=== PATIENT | female | born 1985 | race Caucasian/White ===

== ENCOUNTER 2020-08-08 12:15 | Outpatient (CLI) | payer OTHER, SELFPAY ==
[2020-08-08 12:50] LABS: Hematocrit 43.2 % (37.0-47.0); Hemoglobin 15.4 g/dL (12.0-15.0); Mean Corpuscular HGB Conc 35.6 g/dl (32-36); Mean Corpuscular Hemoglobin 31.8 pg (26-34); Mean Corpuscular Volume 89.1 fl (80-100); Mean Platelet Volume 10.4 fl (7.4-10.4); Platelet Count Result 228 k/mm3 (150-375); Red Blood Count 4.85 M/mm3 (4.2-5.4); Red Cell Distribution Width 11.5 % (11.5-14.5); White Blood Count 7.2 K/mm3 (4.5-10.0)
[2020-08-08 13:58] LABS: Vitamin D 25 Hydroxy 44.8 ng/mL
== END 2020-08-08 12:16 | disposition home or self-care (01) ==
LOC: ANHLAB 12:16
PROVIDERS: Visit Provider Nurse Practitioner
DX: E55.9 Vitamin D deficiency, unspecified (principal)
CPT/HCPCS: 36415; 82306; 82607; 85027

== ENCOUNTER 2023-01-06 09:23 | Outpatient (CLI) | payer OTHER, SELFPAY ==
[2023-01-06 10:05] LABS: Hemoglobin A1C 4.9 % (<5.7)
[2023-01-06 10:27] LABS: Free T4 Free Thyroxine 0.95 ng/mL (0.78-2.19)
[2023-01-06 10:33] LABS: Thyroid Stimulating Hormone 0.707 uIU/mL (0.465-4.680)
[2023-01-09 04:11] LABS: Prolactin 10.3 ng/mL (***)
[2023-01-09 15:37] LABS: DHEA-Sulfate 338 mcg/dL (23-266); Insulin Level Total 2.9 uIU/mL (<=19.6)
[2023-01-10 12:52] LABS: Testosterone Total 29 ng/dL (2-45)
== END 2023-01-06 09:24 | disposition home or self-care (01) ==
PROVIDERS: Visit Provider Nurse Practitioner
DX: L68.0 Hirsutism (principal)
CPT/HCPCS: 36415; 82627; 83036; 83498; 83525; 84146; 84403; 84439; 84443

== ENCOUNTER 2023-11-25 09:25 | Emergency (ER) | payer OTHER, MEDICAID, SELFPAY ==
[2023-11-25 09:43] VITALS: BP 142/87; PULSE 76; RESP 16; TEMP 37.1; O2SAT 99
--- NOTE | 2023-11-25 10:17 | ED.GENADULT ---
HPI - General Adult General Chief complaint: Eye Problems Stated complaint: left eye red,swollen Source: patient Mode of arrival: ambulatory Limitations: no limitations History of Present Illness HPI narrative: Patient presents for evaluation of bilateral eye irritation. Yesterday she noticed some redness and itching to the left eye. She then developed the mucopurulent discharge from left eye. She woke from sleep this morning with her right eye feeling irritated and also with thick yellow/green drainage. She reports some blurred vision secondary to the discharge. She denies any ocular pain. No recent sick contacts to her knowledge. She now has sinus congestion, sore throat, ear pressure and a mild cough. No fever, chills, nausea, vomiting, diarrhea. Related Data Home Medications Medication Instructions Recorded Confirmed albuterol sulfate 90 mcg/actuation 90 mcg inhalation DIRECTED 11/25/23 11/25/23 aerosol inhaler Allergies Allergy/AdvReac Type Severity Reaction Status Date / Time No Known Allergies Allergy Verified 09/22/19 09:37 Review of Systems Review of Systems: CONSTITUTIONAL: Denies fever, chills, or sweats. EYES: reports bilateral eye redness and itching with thick yellow/green discharge. Reports blurred vision. Denies ocular pain ENT: reports sinus congestion, sore throat, bilateral ear pressure. CARDIOVASCULAR: Denies chest pain, palpitations, or edema. RESPIRATORY: Reports cough. Denies shortness of breath GASTROINTESTINAL: Denies abdominal pain, nausea, vomiting, or diarrhea. GENITOURINARY: Denies dysuria or hematuria. SKIN: Denies rash or itching. MUSCULOSKELETAL: Denies back pain, joint pain, or myalgia. NEUROLOGIC: Denies headache, numbness, dizziness, or weakness. PSYCHIATRIC: Denies anxiety or depression. [facility] Past Medical History Medical History No pertinent past medical history Surgical History Surgical History No significant past surgical history Family History Family History Mother Family history non-contributory Social History Social History Smoking status: Never smoker Substance use: never Living arrangements: with family Gender identity (if verbalized by the patient): Female Sexual Orientation (if Verbalized by the Patient): Straight or Heterosexual Spiritual care concerns: No Exam Narrative: GENERAL: Well-appearing, well-nourished, and in no acute distress. HEAD: Normocephalic, atraumatic. EYES: PERRLA and EOMI. bilateral conjunctival injection with mucopurulent discharge present in both eyes ENT: Nares clear, no rhinorrhea or epistaxis. Mucous membranes moist. bilateral tympanic membrane erythema. Posterior pharyngeal erythema without exudate. Uvula is midline NECK: Supple. No adenopathy or masses. No carotid bruits or JVD CHEST: Clear to auscultation. No respiratory distress. No wheezes rales or rhonchi HEART: Regular rate and rhythm. No murmur heard. Normal peripheral pulses. ABDOMEN: Soft, nontender, nondistended, normal active bowel sounds. EXTREMITIES: Normal range of motion. No edema. SKIN: Warm, dry, no rash. NEURO: No focal deficits. Alert and oriented x3. PSYCH: Normal mood and affect. Course Course Emergency Course: this is a 38-year-old female who presented for evaluation eye irritation and sick symptoms. She has evidence of conjunctivitis today. Will treat with erythromycin. COVID, flu, strep were all negative but through shared decision making opted to proceed with antibiotic therapy for pharyngitis. Will discharge with Augmentin. Increase hydration. Advised on hand hygiene measures. Follow up primary provider. Go to the ER for worsening symptoms. Patient in agreement w
== END 2023-11-25 11:04 | disposition home or self-care (01) ==
PROVIDERS: Emergency Provider Nurse Practitioner; PCP Family Medicine
DX: J02.9 Acute pharyngitis, unspecified (principal); H10.9 Unspecified conjunctivitis; Z20.822 Contact with and (suspected) exposure to COVID-19
CPT/HCPCS: 87081; 87426; 87804; 87880; 99213; G0463

== ENCOUNTER 2024-02-25 15:13 | Outpatient (CLI) | payer OTHER, MEDICAID, SELFPAY ==
--- NOTE | ~2024-02-25 | US_ITS ---
US pelvic complete Ordering provider: Saadia Cerda, History: . Abnormal uterine bleeding,pelvic pain . Comparison: None. Technique: Transabdominal ultrasound of the pelvis (Doppler ultrasound interrogation techniques used as needed for this exam.) FINDINGS: CERVIX: Normal. UTERUS: Measures 7.7x 4.1, 5.5 cm in length which is within normal limits and is anteverted. No myom etrial masses. ENDOMETRIUM: Normal in thickness measuring 7 mm. . No endometrial masses, cysts or fluid. IUD is seen in the endometrial cavity. CUL DE SAC: No free fluid. RIGHT OVARY: Normal in size measuring 3.4x 1.7x 2.5 cm. Normal echotexture. Doppler vascular flow pre sent. LEFT OVARY: Normal in size measuring 3.2x 1.5x 2.6 cm. Normal echotexture. Doppler vascular flow pres ent. ADNEXA: Normal. No mass. IMPRESSION: normal pelvic ultrasound. Reviewed, dictated and finalized at location A. IMPRESSION: normal pelvic ultrasound.
== END 2024-02-25 15:14 ==
LOC: MICIMG 15:13
PROVIDERS: PCP Nurse Practitioner; Visit Provider Nurse Practitioner
DX: N93.8 Other specified abnormal uterine and vaginal bleeding (principal); R10.2 Pelvic and perineal pain
CPT/HCPCS: 76856

== ENCOUNTER 2024-05-05 13:34 | Outpatient (CLI) | payer OTHER, MEDICAID, SELFPAY ==
--- NOTE | ~2024-05-05 | US_ITS ---
EXAMINATION: US pelvic complete DATE: 05/05/2024 13:50 INDICATION: Lost intrauterine device strings. TECHNIQUE: Multiple transabdominal sonographic images of the pelvis were obtained. COMPARISON: Ultrasound 02/25/2024 FINDINGS: The uterus measures 9.5 x 3.6 x 4.8 cm. There is no free fluid in the pelvis. The endometrial complex measures 3 mm in thickness. There is an intrauterine device in expected position. The right ovary me asures 3.1 x 1.8 x 3.0 cm. The left ovary measures 2.7 x 1.9 x 1.9 cm. There is normal vascular flow in the ovaries. IMPRESSION: 1. Intrauterine device in expected position. Reviewed, dictated and finalized at location A.
== END 2024-05-05 13:35 | disposition home or self-care (01) ==
LOC: MICIMG 13:34
PROVIDERS: PCP Nurse Practitioner Women's Health; Visit Provider Nurse Practitioner Women's Health
DX: T83.32XA Displacement of intrauterine contraceptive device, initial encounter (principal)
CPT/HCPCS: 76856

== ENCOUNTER 2025-07-25 11:37 | Emergency (ER) | payer OTHER, MEDICAID, SELFPAY ==
[2025-07-25] VITALS (13 sets, daily range): BP systolic 120–152; BP diastolic 76–88; PULSE 68–94; RESP 10–23; TEMP 36.4; O2SAT 93–100
--- NOTE | ~2025-07-25 | XR_ITS ---
EXAMINATION: XR chest 2V, 07/25/2025 12:14 HOSPICE SPIRITUAL CARE COORDINATOR HISTORY: dizzy, CHEST PAIN, X 1 DAY COMPARISON: No comparisons available. Technique: 2 views obtained. Findings: The lungs are clear, no effusion. No pneumothorax. Heart is normal size. Mediastinal and hilar contours are within normal limits. Bony thorax no acute abnormality. Impression: No acute cardiopulmonary abnormality. Reviewed, dictated and finalized at location P. ICE SPIRITUAL CARE COORDINATOR Impression: No acute cardiopulmonary abnormality.
--- NOTE | 2025-07-25 11:47 | ECG_ITS ---
Test Date: 2025-07-25 11:50:12 Measurements Intervals [place] Rate: 89 P: 36 MD: 153 QRS: -7 QRSD: 94 T: -11 QT: 356 QTc: 433 Interpretive Statements SINUS RHYTHM POSSIBLE LEFT ATRIAL ENLARGEMENT [-0.1mV P WAVE IN V1/V2] LOW QRS VOLTAGE IN PRECORDIAL LEADS [QRS DEFLECTION < 1.0 mV IN CHEST LEADS] INFERIOR MYOCARDIAL INFARCTION [40+ ms Q WAVE AND/OR ST/T ABNORMALITY IN II/aVF], OF INDETERMINATE AGE NONSPECIFIC ST AND T-WAVE ABNORMALITY ABNORMAL ECG No previous ECG available for comparison Electronically Signed On 07-25-2025 13:57:21 [employer]IGHER [employer]ULKER by Carlos Izquierdo M.D.
[2025-07-25 12:03] LABS: Hematocrit 44.0 % (37.0-47.0); Hemoglobin 15.3 g/dL (12.0-15.0); Immature Granulocyte Percent A 0.4 % (0-0.5); Lymphocytes Absolute Auto 1.68 K/mm3 (0.9-3.2); Mean Corpuscular HGB Conc 34.8 g/dl (32-36); Mean Corpuscular Hemoglobin 30.7 pg (26-34); Mean Corpuscular Volume 88.2 fl (80-100); Nucleated Red Blood Cells Absolute Auto 0.000 K/mm3 (0.0-0.012); Nucleated Red Blood Cells Perc 0.0 % (0.0-0.2); Platelet Count Result 276 k/mm3 (150-375); Red Blood Count 4.99 M/mm3 (4.2-5.4); White Blood Count 5.2 K/mm3 (4.5-10.0)
[2025-07-25 12:23] LABS: Alanine Aminotransferase 27 U/L (6-35); Albumin Level 4.5 g/dL (3.5-5.1); Alkaline Phosphatase 78 U/L (38-126); Anion Gap 9 mmol/L (4-12); Aspartate Amino Transferase 26 U/L (14-36); Bilirubin,Total 0.5 mg/dL (0.2-1.3); Blood Urea Nitrogen 8 mg/dL (7-17); Calcium 9.0 mg/dL (8.4-10.2); Carbon Dioxide 25 mmol/L (22-30); Chloride 103 mmol/L (98-107); Estimated CRCL calculation 121 ml/min; Estimated Glomerular Filt Rate > 60; Glucose 152 mg/dL (65-110); Potassium 3.7 mmol/L (3.4-5.0); Sodium 137 mmol/L (137-145); Total Protein 7.3 g/dL (6.3-8.2)
[2025-07-25] MEDS: ONDANSETRON INJ 4 MG/2 ML VIAL IV PUSH (12:33)
[2025-07-25] MEDS: MECLIZINE HCL 25 MG TABLET PO (12:54)
[2025-07-25] MEDS: KETOROLAC 30 MG/ML VIAL (*BKC) IV PUSH (12:54)
[2025-07-25] MEDS: SODIUM CHLORIDE 0.9% IV 1,000 ML 999 ML IV CONT (12:56)
--- OUTSIDE RECORDS SUMMARY | 2025-07-25 13:45 | XMS_ITS | Clinical Summary ---
Author Organization [facility] Address [address] [place] [address] Care Team Providers Care Auto Air Conditioning Installer Name Role Phone Unavailable Primary Care Provider Unavailabl e Source Comments [facility],non-owned Affiliates and Associated Physician Practices is amultiple site organization consisting of ambulatory clinics and hospital sitesin [place], [place], [place] and [place]. This disclosure is being madepursuant to the Care Everywhere program and may not contain all information available regarding this patient. Last updated 18.[employer] [facility] [employer] Allergies No known active allergies Medications * Be aware that medications may not be up to date on this document. Alwaysverify current medications with the patient. albuterol HFA (PROVENTIL;ALAYNA MARC;PROAIR) 108 (90 BASE) MCG/ACT inhaler Every 4-6 hours PRN Active Active Problems Problem Noted Date Diagnosed Date Uncomplicated asthma 01/01/2017 Gastro-esophageal reflux disease without esophag itis 01/01/2017 Other specified disorders of bladder 01/01/2017 Resolved Problems Problem Noted Date Diagnosed Date Resolved Date Constipation 01/01/2017 01/29/2017 Overview (01/01/2017): Overview: Occasional Family History Medical History Relation Name Comments Diabetes Father Hypercholesterolemia Father Hypertension Father Cancer - Breast Mother Diabetes Mother Heart Disease Mother Relation Name Status Comments Father Mother Social History Tobacco Use Types Packs/Day Years Used Date Smoking Tobacco: Never Smokeless Tobacco: Never Comments No Sex and Gender Information Value Date Recorded Sex Assigned at Not on file Legal Sex Female 8:53 AM CDT Gender Identity Not on file Sexual Orientation Not on file Last Filed Vital Signs Vital Sign Reading Time Taken Comments Blood Pressure 116/78 10/27/2019 4:51 PM ARCHITECTURE TECHNICIAN Pulse 71 10/27/2019 4:51 PM ARCHITECTURE TECHNICIAN Temperature 36.9 C (98.5 F) 10/27/2019 4:51 PM ARCHITECTURE TECHNICIAN Respiratory Rate 16 10/27/2019 4:51 PM ARCHITECTURE TECHNICIAN Oxygen Saturation 98% 10/27/2019 4:51 PM ARCHITECTURE TECHNICIAN Inhaled Oxygen Concentration - - Weight 90.7 kg (200 lb) 10/27/2019 4:51 PM ARCHITECTURE TECHNICIAN Height 175.3 cm (5' 9) 10/27/2019 4:51 PM ARCHITECTURE TECHNICIAN Body Mass Index 29.53 10/27/2019 4:51 PM ARCHITECTURE TECHNICIAN Plan of Treatment Health Maintenance Due Date Last Done Comments LIPID TESTING 1984 MAMMOGRAM 1984 HIV SCREENING 1999 HEPATITIS C SCREENING 08/29/2002 DTAP/TDAP/TD VACCINES (1 - Tdap) 2003 HEPATITIS B VACCINE (1 of 3 - 19+ 3-dose series) 2003 PAP SMEAR 2005 HPV VACCINE (1 - 3-dose SCDM series) 2011 Cervical Cancer Screening 2014 PAP with HPV 2014 DEPRESSION SCREENING 09/01/2024 COVID-19 VACCINE (1 - 2024-2 6 season) 2025 INFLUENZA VACCINE (#1) 2025 ZOSTER VACCINE (1 of 2) 2034 HIB VACCINE Aged Out No longer eligi ble based on patient's age to complete this topic MENINGOCOCCAL (Group B) VACC INE SHARED DECISION-MAKING Aged Out No longer eligibl e based on patient's age to complete this topic MENINGOCOCCAL GROUPS A/C/Y/W VACCINE Aged Out No longer eligible b ased on patient's age to complete this topic PNEUMOCOCCAL VACCINE Aged Out No long er eligible based on patient's age to complete this topic Insurance [facility]
--- OUTSIDE RECORDS SUMMARY | 2025-07-25 13:45 | XMS_ITS | Clinical Summary ---
Author Organization [facility] Address [address] [place] [id number] Care Team Providers Care Camp Attendant Name Role Phone Juwan Guidry MD Primary Care Provider + Allergies No known active allergies Medications magnesium oxide 400 mg magnesium capsule Take by mouth daily Active fluticasone propion-salmetero L (ADVAIR DISKUS) 500-50 mcg/dose diskus inhalerIndication s:Maintenance Therapy for Asthma Inhale 1 puff 2 (two) times a day Rinse mouth with water after use. Do not swallow. 3 each 4 4 Active montelukast (SINGULAIR) 10 mg tabletIndications :Moderate persistent asthma without complication Take 1 tablet (10 mg total) by mouth nightly 90 tablet 3 4 Active tiotropium bromide (Spiriva Respimat) 2.5 mcg/actuation inhalerIndication s:Moderate persistent asthma without complication Inhale 2 puffs daily 12 g 3 4 08/06/20 25 Active albuterol HFA (ProAir HFA) 90 mcg/actuation inhalerIndication s:Moderate persistent asthma without complication Inhale 2 puffs every 4 (four) hours as needed for wheezing or shortness of breath 2 each 2 4 08/06/20 25 Active meloxicam (MOBIC) 15 mg tabletIndications :Chronic pain of left knee Take 1 tablet (15 mg total) by mouth daily 30 tablet 3 5 Active buPROPion XL (WELLBUTRIN XL) 150 mg 24 hr tabletIndications :MICHELLE (generalized anxiety disorder) Take 1 tablet (150 mg total) by mouth every morning 90 tablet 1 5 Active SUMAtriptan (IMITREX) 50 mg tabletIndications :Migraine Take 1 tablet (50 mg total) by mouth once as needed for migraine May repeat after 2 hours. 27 tablet 4 5 02/19/20 26 Active Active Problems Problem Noted Date Diagnosed Date Chronic pain of left knee 08/06/2024 Assessment & Plan (08/06/2024 11:45 AM DIE MAKER BENCH STAMPING): - concern for meniscal tear given hx and exam consistent with meniscal tear - will get xray, MRI and ref to PT - ref to ortho for eval Annual physical exam 08/06/2024 Assessment & Plan (08/06/2024 11:46 AM DIE MAKER BENCH STAMPING): - Reviewed with the patient BMI, blood pressure, diet, exercise, and encouraged healthy lifestyle choices. - Screened for high risk behaviors, diet and exercise habits, and symptoms of depression. - check screening labs - encouraged regular exercise, healthy lifestyle, obtain/maintain healthy weight Neck pain 04/23/2022 Assessment & Plan (04/23/2022 12:20 PM CDT): - uncontrolled - ref to PT and get xray/MRI of neck Moderate persistent asthma without complication 10/12/2021 Assessment & Plan (08/06/2024 11:42 AM DIE MAKER BENCH STAMPING): - poor control due to being off meds - restart advair, singulair, spiriva, albuterol - f/u with pulm Assessment & Plan (12/14/2021 11:35 AM CDT): - stable - continue current medication - discussed need to take advair bid Assessment & Plan (11/14/2021 12:04 PM CDT): - uncontrolled - pt given trial of spiriva respimat 2.5mcg inhaler to use two inhalations daily - prednisone burst for current exacerbation - f/u in 1 mo Assessment & Plan (10/12/2021 3:50 PM DIE MAKER BENCH STAMPING): - uncontrolled - start advair and albuterol prn - f/u in 1 mo MICHELLE (generalized anxiety disorder) 10/12/2021 Assessment & Plan (08/06/2024 11:44 AM DIE MAKER BENCH STAMPING): - stable - continue wellbutrion Assessment & Plan (10/07/2022 2:51 PM DIE MAKER BENCH STAMPING): - stable - continue current medication Assessment & Plan (03/15/2022 10:29 AM CDT): - stable but gaining weight - will try adding wellbutrin - f/u in 1 mo Assessment & Plan (12/14/2021 11:35 AM CDT): - stable with still mild sx - continue current medication - if neg cardiac work up will try increasing prozac to 40mg daily to see if treating for panic attacks will help sx control. Assessment & Plan (11/14/2021 12:05 PM CDT): - uncontrolled - start prozac 20mg qhs - f/u in 1 mo Assessment & Plan (10/12/2021 3:50 PM DIE MAKER BENCH STAMPING): - uncontrolled - start effexor xr 37.5mg daily x 1 wk then increase to 75mg daily - discussed the risks/benefits/side effects of medication - f/u in 1 mo Palpitations 10/12/2021 Assessment & Plan (10/12/2021 3:50 PM DIE MAKER BENCH STAMPING): - EKG today - normal sinus rhythm, no ST changes, rate 70, no prior EKG to compare to - will send to cardiology for eval, pt high Risk given fhx of ACS Resolved Problems Problem Noted Date Diagnosed Date Resolved Date Dyspnea on exertion 04/23/2022 12/09/19 Assessment & Plan (04/23/2022 12:20 PM CDT): - neg cardiac workup - will increase advair to 500/50 bid and ref to pulm For eval Upper back pain 04/23/2022 08/04/2024 Assessment & Plan (04/23/2022 12:20 PM CDT): - uncontrolled - ref to Pt and get xray/MRI of t-spine Exposure to COVID-19 virus 03/15/2022 1 10/05/2023 Assessment & Plan (03/15/2022 10:28 AM CDT): - COVID test Moderate persistent asthma with exacerbation 08/06/2024 Assessment & Plan (10/07/2022 2:49 PM DIE MAKER BENCH STAMPING): - uncontrolled - continue albuterol, advair, spiriva - add prednisone taper - f/u prn Assessment & Plan (05/08/2022 9:19 AM CDT): - uncontrolled exacerbation - prednisone taper, azithromycin due to pt risk - continue advair and albuterol - add singulair daily - f/u with pulm at apt later this month. Assessment & Plan (04/23/2022 12:20 PM CDT): - uncontrolled - increase advair to 500/50 bid and ref to pulm for eval Assessment & Plan (03/15/2022 10:28 AM CDT): - uncontrolled - steroid burst - albuterol q4hr next 2 days - f/u if sx worsen or do not improve with steroids - once sx resolved will get PFTs Cough 03/15/2022 12/09/2023 Assessment & Plan (03/15/2022 10:28 AM CDT): - tessalon pearls and robitussin Other chest pain 12/14/2021 08/06/2024 Assessment & Plan (12/14/2021 11:34 AM CDT): - discussed signs/sx of cardiac chest pain vs other conditions - continue with plan for cardiac testing next week - discussed reasons to go to ER prior to stress test - f/u prn Class 2 obesity due to exces s calories without serious comorbidity with body mass index (BMI) of 37.0 to 37.9 in adult 10/12/202112/2023 Gastro-esophageal reflux dis ease without esophagitis 01/01/2017 08/06/2024 Immunizations Immunization Administration Dates Next Due Influenza, Unspecified 08/06/2024(Deferr ed: Patient Refused),06/01/2023(Deferred: Patient Refused),10/07/2022(Deferred: Patient Refused),10/12/2021(Deferred: Patient decision) Surgical History Surgery Date Site/Laterality Comments KNEE SURGERY Medical History Medical History Date Comments Asthma Hiatal hernia Family History Medical History Relation Name Comments Diabetes Father Heart attack Father Heart disease Father Hyperlipidemia Father Skin cancer Father Arthritis Mother Breast cancer Mother Diabetes Mother Heart disease Mother Stroke Mother Heart attack Sister Migraines Sister Relation Name Status Comments Father (Age 59) Mother Alive Sister Alive Social History Tobacco Use Types Packs/Day Years Used Date Smoking Tobacco: Never Tobacco Cessation:Counseling Given: Not Answered AUDIT-C Answer Date Recorded Q1: How often do you have a drink containing alc ohol? Monthly or less 02/18/2025 Q2: How many drinks containi ng alcohol do you have on a typical day when you are drinking? 1 or 2 02/18/2025 Q3: How often do you have si x or more drinks on one occasion? Never 02/18/2025 PHQ-2 Answer Date Recorded PHQ-2 Total Score (If total score is 3 or more points, staff should administer the PHQ-9) 0 12/27/2024 Comments No Sex and Gender Information Value Date Recorded Sex Assigned at Not on file Legal Sex Female 8:06 AM DIE MAKER BENCH STAMPING Gender Identity Not on file Sexual Orientation Not on file Obstetrics History Para Term AB IAB SAB Ectopic Multiple Livin g Live Births 2 2 2 Date Outcome GA Total Labor Labor/2nd/3rd Weight Sex Type Anes PTL Liz A1 A5 Name Clin Term Term Last Filed Vital Signs Vital Sign Reading Time Taken Comments Blood Pressure 128/92 02/18/2025 3:42 PM CDT Pulse 77 02/18/2025 3:42 PM CDT Temperature 36.5 C (97.7 F) 02/18/2025 3:42 PM CDT Respiratory Rate 20 02/18/2025 3:42 PM CDT Oxygen Saturation 97% 02/18/2025 3:42 PM CDT Inhaled Oxygen Concentration - - Weight 114.8 kg (253 lb) 02/18/2025 3:42 PM CDT Height 172.7 cm (5' 8) 02/18/2025 3:42 PM CDT Body Mass Index 38.47 02/18/2025 3:42 PM CDT Plan of Treatment Health Maintenance Due Date Last Done Comments Cervical Cancer Screening 1984 Hepatitis C Screening 1984 DTaP/Tdap/Td Vaccine (1 - Tdap) 1995 Varicella Vaccines (1 of 2 - 13+ 2-dose series) 1997 Hepatitis B Screening 2002 Pneumococcal vaccine <65 (1 of 2 - PCV) 2003 HPV Vaccines (1 - 3-dose SCD M series) 2011 Covid-19 Vaccine (3 - 2024-2 6 season) 2025 12/19/2020, 11/28/2020 Influenza Vaccine (#1) 2025 Regular Well Visit/Exam 18-64 08/06/2025 08/06/2024 Breast Cancer Screening-Mammogram 08/23/2025 024 Depression Screening 12/27/2025 12/27/2024, 08/06/2024, 03/15/2022, Additional history exists Procedures Procedure Name Priority Date/Time Associated Diagnosis Comments SCREENING MAMMOGRAM BILATERAL W MEGAN Schedule Routine, Read Routine (OP Routine) 08/23/2024 11:07 AM DIE MAKER BENCH STAMPING Encounter for screening mammogram for malignant neoplasm of breast from Last 3 Months or Most Recently Relevant to Health Maintenance Results * SCREENING MAMMOGRAM BILATERAL W MEGAN (08/23/2024 11:07 AM DIE MAKER BENCH STAMPING) Anatomical Region Laterality Modality Breast Bilateral Mammography Impressions 08/23/2024 11:40 AM DIE MAKER BENCH STAMPING BI-RADS ATLAS category (overall): 1 - Negative There is no mammographic evidence of malignancy. A 1 year screening mammogram is recommended. The patient has been or will be contacted. We recommend annual screening mammography for women at average risk of breast cancer beginning at age 40, based on guidelines of the [employer] (ACR Practice Parameter for the Performance of Screening and Diagnostic Mammography) and [employer]. For women with and elevated risk of breast cancer, please refer to the ACR Practice Parameter for specific screening recommendations. The patient will be entered into a reminder system with a target due date of 1 year for her next screening exam. Narrative 08/23/2024 11:40 AM DIE MAKER BENCH STAMPING SCREENING MAMMOGRAM BILATERAL W MEGAN: 08/23/24 The study was acquired using full field digital technology and interpreted from soft copy. 2D digital mammographic views, as well as 3D digital tomosynthesis were performed in the CC and MLO projections. This study was resulted using Computer-Aided Detection (CAD). CLINICAL: Encounter for screening mammogram for malignant neoplasm of breast. No relevant medical history has been documented for this patient. History of breast cancer in Mother. No comparisons were made when reading this study. BREAST TISSUE: There are scattered areas of fibroglandular density. FINDINGS: No suspicious masses, suspicious calcifications, or other suspicious findings are seen within either breast. Juwan Guidry MD IMG MAMMO PROCEDURES Fin al Result from Last 3 Months or Most Recently Relevant to Health Maintenance Insurance [employer] [facility] PL[facility] [employer] Care Teams Camp Attendant Relationship Specialty Start Date End Date Juwan Guidry MD [address] [place] [id number] PCP - General Family Medicine 10/12/21
--- OUTSIDE RECORDS SUMMARY | 2025-07-25 13:45 | XMS_ITS | Encounter Summary ---
Author Organization [employer] Address [address] [place] [address] Care Team Providers Care Lead Ramp Service Man Name Role Phone Edgard Pradhan MD Primary Care Provider [phone] Encounter Details Date Type Department Care Team (Late st Contact Info) Description 07/12/2001 Emergency [facility] Amada Yee MD NO ADDRESS ON FILE Er, Authorized P NO ADDRESS ON FILE SPRAIN SHOULDER/ARM NOS (Primary Dx) Social History Tobacco Use Types Packs/Day Years Used Date Smoking Tobacco: Never Assessed Comments Unknown Sex and Gender Information Value Date Recorded Sex Assigned at Not on file Legal Sex Female 2:38 AM CHIEF JAILER Gender Identity Not on file Sexual Orientation Not on file documented as of this encounter Plan of Treatment Not on file documented as of this encounter Visit Diagnoses Diagnosis Sprain and strain of unspecified site of shoulder and upper arm- Primary documented in this encounter Care Teams Lead Ramp Service Man Relationship Specialty Start Date End Date Edgard Pradhan MD [address] [facility] [address] [place] [address] PCP - General 05/25/00 08/05/17 documented as of this encounter
--- OUTSIDE RECORDS SUMMARY | 2025-07-25 13:45 | XMS_ITS | Encounter Summary ---
Author Organization [employer] Address [address] [place] [address] Care Team Providers Care Composition Floor Setter Name Role Phone Edgard Pradhan MD Primary Care Provider [phone] Encounter Details Date Type Department Care Team (Late st Contact Info) Description 09/21/2000 Emergency [facility] Brissa Baltazar, BLADE FILER [address] [facility] [address] [place] [id number] Er, Authorized P NO ADDRESS ON FILE Tietze's disease (Primary Dx) Social History Tobacco Use Types Packs/Day Years Used Date Smoking Tobacco: Never Assessed Comments Unknown Sex and Gender Information Value Date Recorded Sex Assigned at Not on file Legal Sex Female 2:38 AM 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
--- OUTSIDE RECORDS SUMMARY | 2025-07-25 13:45 | XMS_ITS | Clinical Summary ---
Author Organization [facility] Address [address] [place] [address] Care Team Providers Care Faculty Dean Name Role Phone Unavailable Primary Care Provider Unavailabl e Medications Progesterone 100mg Suppository Insert 1 Suppository vaginally daily at bedtime. 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 Gender Identity Not on file Sexual Orientation Not on file Plan of Treatment Health Maintenance Due Date Last Done Comments DTAP/TDAP/TD VACCINES (1 - Tdap) 2003 HEPATITIS B VACCINES (1 of 3 - 19+ 3-dose series) 10/2003 HPV/Cotest (21-29) 2005 HPV VACCINES (1 - 3-dose SCDM series) 2011 CERVICAL CANCER SCREENING 2014 HPV/Cotest (30-65) 2014 PAP SMEAR 2014 BREAST CANCER SCREENING 2024 INFLUENZA VACCINE (#1) 2025 Insurance OPTIONS PPO [id number] RX [employer] RX Member Subscriber Plan / Payer (Ef fective for All Dates) Name:Elen Spann Relation to Subscriber:Self Name:Elen Spann Payer ID:Not on file Group ID:[id number] Type:RX Commercial Address: [address]
--- OUTSIDE RECORDS SUMMARY | 2025-07-25 13:45 | XMS_ITS | Encounter Summary ---
Author Organization [employer] Address 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
--- OUTSIDE RECORDS SUMMARY | 2025-07-25 13:45 | XMS_ITS | Encounter Summary ---
Author Organization [employer] Address [address] [place] [address] Care Team Providers Care Document Controller Name Role Phone Edgard Pradhan MD Primary Care Provider [phone] Encounter Details Date Type Department Care Team (Latest Contact Info) Description 06/08/2001 Outpatient [facility] [address] [facility] [address] [place] [phone] [place] [address] [place] [phone] Pain in joint, lower leg (Primary Dx) Social History Tobacco Use Types Packs/Day Years Used Date Smoking Tobacco: Never Assessed Comments Unknown Sex and Gender Information Value Date Recorded Sex Assigned at Not on file 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
--- OUTSIDE RECORDS SUMMARY | 2025-07-25 13:45 | XMS_ITS | Encounter Summary ---
Author Organization [employer] Address 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
--- OUTSIDE RECORDS SUMMARY | 2025-07-25 13:45 | XMS_ITS | Encounter Summary ---
Author Organization [employer] Address 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
--- OUTSIDE RECORDS SUMMARY | 2025-07-25 13:45 | XMS_ITS | Clinical Summary ---
Author Organization [facility] Address [address] [place] [address] Phone Care Team Providers Care Stock Room Manager Name Role Phone Unavailable Primary Care Provider Unavailabl e Allergies No known active allergies Medications solifenacin (VESICARE) 10 MG Tablet daily. Active pantoprazole (PROTONIX) 40 MG Tablet Delayed Response daily. Active Albuterol Sulfate (PROAIR HFA IN) Every 4-6 hours PRN Active Active Problems Problem Noted Date Diagnosed Date GERD (gastroesophageal reflux disease) Constipation Overview (08/18/2015): Occasional Asthma Spastic bladder Social History Tobacco Use Types Packs/Day Years Used Date Smoking Tobacco: Never Assessed Comments Unknown Sex and Gender Information Value Date Recorded Sex Assigned at Not on file Legal Sex Female 11:07 PM CDT Gender Identity Not on file Sexual Orientation Not on file Plan of Treatment Health Maintenance Due Date Last Done Comments Hepatitis C Virus (HCV) Screening 1984 TdaP Immunization 1984 Hepatitis B Immunization (1 of 3 - 19+ 3-dose series) 2003 Pneumococcal Immunization Co mbined (1 of 2 - PCV) 2003 Pap Smear 2005 Human Papillomavirus (HPV) Immunization (1 - 3-dose SCDM series) 2011 Cervical Cancer Screening (CCS) 2014 HPV/Cotest 2014 Influenza Immunization (#1) 2025 SARS-COV-2 Immunization ( - season) 2025 Respiratory Syncytial Virus (RSV) Immunization (Adult) (1 - 1-dose 75+ series) 2059 Meningococcal Immunization (ACWY) Aged Out No longer eligible based on patient's age to complete this topic Rotavirus Immunization Aged Out No lo nger eligible based on patient's age to complete this topic
--- OUTSIDE RECORDS SUMMARY | 2025-07-25 13:45 | XMS_ITS | Encounter Summary ---
Author Organization [facility] [employer] Address 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
--- NOTE | 2025-07-25 13:57 | ED.GENADULT ---
HPI - General Adult General Chief complaint: Dizziness Stated complaint: dizziness/weakness since 0500 07/24 Time Seen by Provider: 07/25/25 12:05 History of Present Illness HPI narrative: Patient is a 39-year-old female who presents ER with dizziness. Yesterday morning at 5:00 a.m. she rolled her left side became immediately dizzy. Spinning in nature. Has some nausea. Symptoms continue to worsen if she turns her head to left or rolls over. She feels unsteady when she walks and like she is being pulled to left side. No numbness or weakness to an arm or leg. No slurred speech. Has history of motion sickness in the past but never this bad. She took meclizine today at 8:00 a.m. with minimal improvement. No fevers or chills or sweats. No runny nose or sore throat or productive cough. No Headache. She does have some photophobia and discomfort looking at a computer screen. Related Data Home Medications ?Medication ?Instructions ?Recorded ?Confirmed ?Last Taken ?Type albuterol sulfate 90 mcg/actuation 90 mcg inhalation DIRECTED 11/25/23 11/25/23 Unknown History aerosol inhaler Allergies Allergy/AdvReac Type Severity Reaction Status Date / Time No Known Allergies Allergy Verified 07/25/25 11:56 Review of Systems Review of Systems: All systems reviewed & are unremarkable except as noted in HPI and below Constitutional: Constitutional: Reports no additional constitutional complaints ENT: Reports system reviewed and no additional complaints, except as documented Cardiovascular: Cardiovascular: Reports no additional cardiovascular complaints Respiratory: Respiratory: Reports no additional respiratory complaints Neurologic: Reports system reviewed and no additional complaints, except as documented [facility], [facility] Past Medical History Medical History No pertinent past medical history Surgical History Surgical History No significant past surgical history Family History Family History Mother Family history non-contributory Social History Social History Smoking status: Never smoker Substance use: never Living arrangements: with family Gender identity (if verbalized by the patient): Female Sexual Orientation (if Verbalized by the Patient): Straight or Heterosexual Spiritual care concerns: No Exam Narrative: GENERAL: Well-appearing, well-nourished, and in no acute distress. HEAD: Normocephalic, atraumatic. ENT: Mucous membranes moist. TMs normal bilaterally. Audible popping with your manipulation. Eyes: PERRLA, EOMI. CHEST: Clear to auscultation. No respiratory distress. HEART: Regular rate and rhythm. Normal peripheral pulses. ABDOMEN: Soft, nontender, nondistended. EXTREMITIES: Normal range of motion. No edema. SKIN: Warm, dry, no rash. NEURO: Alert and oriented x3. PSYCH: Normal mood and affect. Course Course Emergency Course: Patient has been given meclizine as well as Valium. She has had the Edouard maneuver performed. She feels much better. Appropriate for discharge home. Vital Signs Vital signs: Vital Signs Temperature 97.6 F 07/25/25 11:40 Pulse Rate 94 07/25/25 11:40 Respiratory Rate 17 07/25/25 11:40 Blood Pressure 152/78 H 07/25/25 11:40 Pulse Oximetry 100 07/25/25 11:40 Oxygen Delivery Room Air 07/25/25 11:40 Temperature 97.6 F 07/25/25 11:40 Pulse Rate 68 07/25/25 16:00 Respiratory Rate 15 07/25/25 16:00 Blood Pressure 121/78 07/25/25 16:00 Pulse Oximetry 94 07/25/25 16:00 Oxygen Delivery Room Air 07/25/25 11:47 Medical Decision Making Differential Diagnosis Differential Diagnosis: Vertigo, CVA, dehydration, otitis media, migraine Vital Signs Vital Signs: Vital Signs Temperature 97.6 F 07/25/25 11:40 Pulse Rate 94 07/25/25 11:40 Respiratory Rate 17 07/25/25 11:40 Blood Pressure 152/78 H 07/25/25 11:40 Pulse Oximetry 100 07/25/25 11:40 Oxygen Delivery Room Air 07/25/25 11:40 Temperature 97.6 F 07/25/25 11:40 Pulse Rate 68 07/25/25 16:00 Respiratory Rate 15 07/25/25 16:00 Blood Pressure 121/78 07/25/25 16:00 Pulse Oximetry 94 07/25/25 16:00 Oxygen Delivery Room Air 07/25/25 11:47 Lab Data Lab results reviewed: Yes I reviewed the patient's lab results. 07/25/25 11:57 07/25/25 11:57 Labs: Lab Results 07/25/25 Range/Units 11:57 WBC 5.2 (4.5-10.0) K/mm3 RBC 4.99 (4.2-5.4) M/mm3 Hgb 15.3 H (12.0-15.0) g/dL Hct 44.0 (37.0-47.0) % MCV 88.2 (80-100) fl MCH 30.7 (26-34) pg MCHC 34.8 (32-36) g/dl RDW 11.9 (11.5-14.5) % Plt Count 276 (150-375) k/mm3 MPV 10.0 (7.4-10.4) fl Immature Gran % (Auto) 0.4 (0-0.5) % Neut % (Auto) 58.6 (45.5-73.1) % Lymph % (Auto) 32.2 (18.3-44.2) % Mora % (Auto) 6.7 (2.6-8.5) % Eos % (Auto) 1.7 (0-4.4) % Baso % (Auto) 0.4 (0.2-1.2) % Lymph # (Auto) 1.68 (0.9-3.2) K/mm3 Mora # (Auto) 0.4 (0.1-0.6) K/mm3 Eos # (Auto) 0.1 (0-0.3) K/mm3 Baso # (Auto) 0.0 (0.0-0.1) K/mm3 Abs Immat Gran (auto) 0.02 (0.00-0.031) K/mm3 Absolute Neuts (auto) 3.1 (1.3-6.7) K/mm3 Absolute Nucleated RBC 0.000 (0.0-0.012) K/mm3 Nucleated RBC % 0.0 (0.0-0.2) % Sodium 137 (137-145) mmol/L Potassium 3.7 (3.4-5.0) mmol/L Chloride 103 (98-107) mmol/L Carbon Dioxide 25 (22-30) mmol/L Anion Gap 9 (4-12) mmol/L BUN 8 (7-17) mg/dL Creatinine 0.71 (0.7-1.0) mg/dL Estim Creat Clear Calc 121 ml/min Estimated GFR > 60 (59 - ) Glucose 152 H (65-110) mg/dL Calcium 9.0 (8.4-10.2) mg/dL Total Bilirubin 0.5 (0.2-1.3) mg/dL AST 26 (14-36) U/L ALT 27 (6-35) U/L Alkaline Phosphatase 78 (38-126) U/L Total Protein 7.3 (6.3-8.2) g/dL Albumin 4.5 (3.5-5.1) g/dL Imaging Data Radiologist's impression: ITS Impressions Chest X-Ray 07/25/25 12:21 Impression: No acute cardiopulmonary abnormality. ECG Data EKG #1: ECG completion date: 07/25/25 ECG completion time: 11:50 EKG Interpretation: normal rate (89), sinus rhythm, non-specific ST changes, normal QRS and normal QT Discharge Plan Discharge Clinical Impression: Vertigo Patient Disposition: Home Condition: Stable Instructions: Vertigo (ED) Additional Instructions: Return ER if you have fever 100.4? F, he can not keep down food water, he lose consciousness, you have new weakness or numbness to any arm or leg, or you have additional concerns. Patient Language: [place] Island[place] Prescriptions: New meclizine 25 mg tablet 25 mg PO TID PRN (Reason: dizziness) Qty: 14 0RF No Action albuterol sulfate 90 mcg/actuation HFA aerosol inhaler 90 mcg INHALATION DIRECTED amoxicillin-pot clavulanate 875-125 mg tablet 1 tablet PO Q12H Qty: 20 0RF erythromycin 5 mg/gram (0.5 %) ointment 0.5 inch EACH EYE 6XD 7 Days Qty: 3.5 0RF Follow-up/Referrals: Betty,ASH Worrell [Primary Care Provider, Unknown] - 1 Week
[2025-07-25] MEDS: diazePAM INJ (*CRX) 10 MG/2 ML SYRINGE 5 MG IV PUSH (15:04)
== END 2025-07-25 17:25 | disposition home or self-care (01) ==
PROVIDERS: Emergency Medicine; Emergency Provider Emergency Medicine; PCP Nurse Practitioner Women's Health
DX: R42 Dizziness and giddiness (principal); R94.31 Abnormal electrocardiogram [ECG] [EKG]
CPT/HCPCS: 36415; 71046; 80053; 85025; 93005; 96361; 96374; 96375; 99284; A9270; J1885; J2405; J3360; J7030